=== PATIENT | male | born 1980 | race Caucasian/White ===

== ENCOUNTER 2019-08-03 19:47 | Emergency (ER) | payer OTHER, SELFPAY ==
[2019-08-03 20:11] VITALS: BP 126/60; PULSE 106; RESP 23; TEMP 39.4; O2SAT 97; BMI 27.1
--- NOTE | 2019-08-03 20:23 | DI.RAD.S_ITS ---
PROCEDURE: XR CHEST 1V INDICATIONS: suspected sepsis TECHNIQUE: One view of the chest was acquired. COMPARISON: None. FINDINGS: Surgical changes and devices: None. Lungs and pleura: Lungs are clear. No pleural effusions or pneumothorax. Mediastinum: Mediastinal contours appear normal. Heart size is normal. Bones and chest wall: No suspicious bony lesions. Overlying soft tissues appear unremarkable. IMPRESSION: No acute cardiopulmonary abnormalities or focal airspace disease. Dictated by: Stanton Granados M.D. on 08/03/2019 at 21:49 Approved by: Stanton Granados M.D. on 08/03/2019 at 21:49
[2019-08-03] MEDS: ACETAMINOPHEN 325 MG TABLET 975 MG PO (20:28)
[2019-08-03] MEDS: SODIUM CHLORIDE 0.9% 1,000 ML 1000 ML IV ×2 (20:42→21:45)
[2019-08-03 21:08] LABS: INR 1.2 (0.9-1.3); Prothrombin Time 13.4 SECONDS (10.1-12.7)
[2019-08-03 21:11] LABS: PTT Partial Thromboplastin Tim 33 SECONDS (26.4-36.2)
[2019-08-03 21:13] LABS: Add Manual Diff / Slide Review NO; Basophils Absolute Auto 0 /uL (0-100); Basophils Percent Auto 0.2 % (0-2); Eosinophils Absolute Auto 100 /uL (0-450); Eosinophils Percent Auto 1.3 % (2-4); Hematocrit 43.4 % (41-53); Hemoglobin 14.8 g/dL (13.5-17.5); Lactate (Lactic Acid) 0.9 mmol/L (0.7-2.1); Lymphocytes Absolute Auto 500 /uL (1100-4500); Lymphocytes Percent Auto 9.4 % (25-40); Mean Corpuscular HGB Conc 34.1 % (30-36); Mean Corpuscular Hemoglobin 28.6 PG (26-34); Monocytes Absolute Auto 1100 /uL (0-900); Monocytes Percent Auto 19.6 % (3-14); Neutrophils Absolute Auto 3700 /uL (1500-7000); Neutrophils Percent Auto 69.5 % (50-75); Platelet Count 162 X10^3/uL (150-400); Red Blood Cell Count 5.17 X10^6/uL (4.5-5.9); Red Cell Distribution Width 12.7 % (11.6-14.8); White Blood Cell Count 5.4 X10^3/uL (4.5-11.0)
[2019-08-03 21:14] LABS: Alanine Aminotransferase 21 IU/L (<50); Albumin 4.5 g/dL (3.5-5.0); Albumin Globulin Ratio 1.2 (1.0-2.8); Alkaline Phosphatase 82 U/L (38-126); Aspartate Aminotransferase 29 IU/L (17-59); BUN Creatinine Ratio 13.8 (6-22); Bilirubin Total 0.4 mg/dL (0.2-1.3); Blood Urea Nitrogen 15 mg/dL (9-20); Calcium 9.2 mg/dL (8.4-10.2); Carbon Dioxide 24 mmol/L (22-32); Chloride 105 mmol/L (98-107); Estimated Glomerular Filt Rate > 60.0 mL/min (>60); Globulin 3.7 g/dL (1.7-4.1); Glucose 123 mg/dL (70-100); HEMOLYSIS < 15 (0-50); Lipase 96 U/L (23-300); Potassium 3.7 mmol/L (3.4-5.1); Sodium 137 mmol/L (137-145); Total Protein 8.2 g/dL (6.3-8.2)
--- NOTE | 2019-08-03 21:17 | ED_ITS ---
HPI - Sepsis General Chief Complaint: Upper Respiratory Symptoms Mode of arrival: Ambulatory Source: patient Limitations: no limitations Evaluation Sepsis Screen: Possible Sepsis Risk Sepsis Infection Criteria Present: Suspected New Infection Narrative: This is a 38-year-old who comes in with complaint of about 24 hours of fever, cough that is been productive with brownish discoloration, shortness of breath and chest discomfort. Patient had body aches all over. He states that temperatures have been up to [id number] F. He has been taking Tylenol and ibuprofen intermittently. Patient states that he has a mild headache. No neck pain. He has generalized body aches. He has not had any vomiting has had maybe some mild nausea. He has been slightly constipated but did passing gas. He has not had any frequency, dysuria, urgency. He denies any rashes or skin changes. Son has had a cough at home. Patient states otherwise healthy, he is not on any regular medications, he denies prior surgeries. He denies any allergies to medications. Patient states no international travel. He has no other sick contacts besides his son. He does have coworkers who have been in [place] recently. Review of Systems Review of Systems ROS Unobtainable: All systems reviewed & are unremarkable except as noted in HPI and below Patient History Social History Smoking Status: Current every day smoker Smoking Status: Current every day smoker alcohol intake frequency: a few times a month Substance Use Type: does not use Exam Narrative Exam Narrative: GEN: well nourished, well appearing male, alert and oriented x 3, patient appears to be in mild distress. Patient is warm to the touch. He is not diaphoretic. HEENT: Atraumatic, pupils are equal round reactive to light, extraocular movements are intact, nares are clear, TMs are clear with no fluid, there is no conjunctival pallor. Throat is clear without any exudates, erythema, tonsillar enlargement or uvular deviation, no cervical lymphadenopathy. Negative Kernig's and Brudzinski. HEART: Regular rate and rhythm without murmur, clicks, rubs. Pulses are equal in upper and lower extremities LUNGS:Lungs clear to auscultation, no wheezes, rales, crackles, chest moves symmetrically, no tachypnea accessory muscle use. ABD:bowel sounds normal, soft, non-tender, no guarding, rebound, rigidity, no masses noted, no hepatosplenomegaly :No CVA tenderness MSCL: Non-tender, no muscle atrophy, muscles strength 5/5 upper and lower extremities, full range of motion, normal gait NEURO:CN 2-12 intact, sensation normal SKIN: Rash, erythema or other skin changes. No petechiae. Initial Vital Signs Initial Vital Signs: Vital Signs Temperature 103 F H 08/03/19 20:11 Pulse Rate 106 H 08/03/19 20:11 Respiratory Rate 23 08/03/19 20:11 Blood Pressure 126/60 08/03/19 20:11 Pulse Oximetry 97 08/03/19 20:11 Scores qSOFA Altered Mental Status (GCS <15): No Respiratory rate greater than/equal to 22: No Systolic blood pressure less than or equal to 100: No qSOFA Total: 0 0-1 Not High Risk 1-3 High risk Course Orders Ordered: ED Orders 08/03/19 20:23 XR chest 1V Stat EKG-12 Lead Stat RT Consult Eval and Treat Now 08/03/19 20:39 Complete Blood Count AUTO DIFF Stat Comprehensive Metabolic Panel Stat Lactate (Lactic Acid) Stat Lipase Stat Partial Thromboplastin Time Stat Procalcitonin Stat Prothrombin Time INR Stat Respiratory Panel (Film Array) Stat 08/03/19 20:46 Blood Culture Stat Discontinued Medications Acetaminophen (Tylenol) 975 mg PO NOW ONE Stop: 08/03/19 20:24 Last Admin: 08/03/19 20:28 Dose: 975 mg Documented by: SARAH Sodium Chloride (Normal Saline 0.9%) 1,000 mls @ 1,000 mls/hr IV BOLUS ONE Stop: 08/03/19 21:22 Last Infusion: 08/03/19 21:44 Dose: 0 mls/hr Documented by: Admin: 08/03/19 20:42 Dose: 1,000 mls/hr Documented by: KARINE Sodium Chloride (Normal Saline 0.9%) 1,000 mls @ 1,000 mls/hr IV BOLUS ONE Stop: 08/03/19 22:25 Last Infusion: 08/03/19 22:40 Dose: 0 mls/hr Documented by: Admin: 08/03/19 21:45 Dose: 1,000 mls/hr Documented by: KARINE Vital Signs Vital signs: Vital Signs - 8 hr 08/03/19 20:11 08/03/19 22:53 Temperature 103 F H 98.6 F Pulse Rate 106 H 74 Respiratory Rate 23 18 Blood Pressure 126/60 Blood Pressure [Left Arm] 108/51 L Pulse Oximetry 97 94 MDM - Sepsis Lab Data Attestation: I reviewed the patient's lab results. Result diagrams: 08/03/19 20:39 08/03/19 20:39 Labs: Lab Results 08/03/19 08/03/19 08/03/19 Range/Units 20:39 20:39 20:39 WBC 5.4 (4.5-11.0) X10^3/uL RBC 5.17 (4.5-5.9) X10^6/uL Hgb 14.8 (13.5-17.5) g/dL Hct 43.4 (41-53) % MCV 84.0 (80-100) fL MCH 28.6 (26-34) PG MCHC 34.1 (30-36) % RDW 12.7 (11.6-14.8) % Plt Count 162 (150-400) X10^3/uL Neut % (Auto) 69.5 (50-75) % Lymph % (Auto) 9.4 L (25-40) % [place] % (Auto) 19.6 H (3-14) % Eos % (Auto) 1.3 L (2-4) % Baso % (Auto) 0.2 (0-2) % Neut # (Auto) 3700 (8434-0568) /uL Lymph # (Auto) 500 L (5226-6402) /uL [place] # (Auto) 1100 H (0-900) /uL Eos # (Auto) 100 (0-450) /uL Baso # (Auto) 0 (0-100) /uL PT 13.4 H (10.1-12.7) SECONDS INR 1.2 (0.9-1.3) APTT 33 (26.4-36.2) SECONDS Sodium (137-145) mmol/L Potassium (3.4-5.1) mmol/L Chloride (98-107) mmol/L Carbon Dioxide (22-32) mmol/L BUN (9-20) mg/dL Creatinine (0.66-1.25) mg/dL Estimated GFR (>60) mL/min BUN/Creatinine Ratio (6-22) Glucose (70-100) mg/dL Lactate (0.7-2.1) mmol/L Calcium (8.4-10.2) mg/dL Total Bilirubin (0.2-1.3) mg/dL AST (17-59) IU/L ALT (<50) IU/L Alkaline Phosphatase (38-126) U/L Total Protein (6.3-8.2) g/dL Albumin (3.5-5.0) g/dL Globulin (1.7-4.1) g/dL Albumin/Globulin Ratio (1.0-2.8) Lipase (23-300) U/L Procalcitonin < 0.05 (<0.5) ng/mL Chlamy pneumoniae PCR (Not Detect) Adenovirus (PCR) (Not Detect) B.parapertussis DNA PCR (Not Detect) Coronavirus OC43 (PCR) (Not Detect) Coronavirus HKU1 (PCR) (Not Detect) Coronavirus 229E (PCR) (Not Detect) Coronavirus NL63 (PCR) (Not Detect) Human Metapneumovir PCR (Not Detect) Influenza Type A (PCR) (Not Detect) Influenza Type B (PCR) (Not Detect) M. pneumoniae (PCR) (Not Detect) Parainfluenza 1 (PCR) (Not Detect) Parainfluenza 2 (PCR) (Not Detect) Parainfluenza 3 (PCR) (Not Detect) Parainfluenza 4 (PCR) (Not Detect) RSV (PCR) (Not Detect) Entero/Rhino (PCR) (Not Detect) 08/03/19 08/03/19 08/03/19 Range/Units 20:39 20:39 20:39 WBC (4.5-11.0) X10^3/uL RBC (4.5-5.9) X10^6/uL Hgb (13.5-17.5) g/dL Hct (41-53) % MCV (80-100) fL MCH (26-34) PG MCHC (30-36) % RDW (11.6-14.8) % Plt Count (150-400) X10^3/uL Neut % (Auto) (50-75) % Lymph % (Auto) (25-40) % [place] % (Auto) (3-14) % Eos % (Auto) (2-4) % Baso % (Auto) (0-2) % Neut # (Auto) (1348-0277) /uL Lymph # (Auto) (9974-4200) /uL [place] # (Auto) (0-900) /uL Eos # (Auto) (0-450) /uL Baso # (Auto) (0-100) /uL PT (10.1-12.7) SECONDS INR (0.9-1.3) APTT (26.4-36.2) SECONDS Sodium 137 (137-145) mmol/L Potassium 3.7 (3.4-5.1) mmol/L Chloride 105 (98-107) mmol/L Carbon Dioxide 24 (22-32) mmol/L BUN 15 (9-20) mg/dL Creatinine 1.09 (0.66-1.25) mg/dL Estimated GFR > 60.0 (>60) mL/min BUN/Creatinine Ratio 13.8 (6-22) Glucose 123 H (70-100) mg/dL Lactate 0.9 (0.7-2.1) mmol/L Calcium 9.2 (8.4-10.2) mg/dL Total Bilirubin 0.4 (0.2-1.3) mg/dL AST 29 (17-59) IU/L ALT 21 (<50) IU/L Alkaline Phosphatase 82 (38-126) U/L Total Protein 8.2 (6.3-8.2) g/dL Albumin 4.5 (3.5-5.0) g/dL Globulin 3.7 (1.7-4.1) g/dL Albumin/Globulin Ratio 1.2 (1.0-2.8) Lipase 96 (23-300) U/L Procalcitonin (<0.5) ng/mL Chlamy pneumoniae PCR Not detected (Not Detect) Adenovirus (PCR) Not detected (Not Detect) B.parapertussis DNA PCR Not detected (Not Detect) Coronavirus OC43 (PCR) Not detected (Not Detect) Coronavirus HKU1 (PCR) Not detected (Not Detect) Coronavirus 229E (PCR) Not detected (Not Detect) Coronavirus NL63 (PCR) Not detected (Not Detect) Human Metapneumovir PCR Not detected (Not Detect) Influenza Type A (PCR) Detected H (Not Detect) Influenza Type B (PCR) Not detected (Not Detect) M. pneumoniae (PCR) Not detected (Not Detect) Parainfluenza 1 (PCR) Not detected (Not Detect) Parainfluenza 2 (PCR) Not detected (Not Detect) Parainfluenza 3 (PCR) Not detected (Not Detect) Parainfluenza 4 (PCR) Not detected (Not Detect) RSV (PCR) Not detected (Not Detect) Entero/Rhino (PCR) Not detected (Not Detect) Imaging Data Chest x-ray: Radiologist's Impression: [address] [address] XRay Report Signed Patient: Taz Greene KMR#: [id number] : 1980Acct:[id number] Age/Sex: 38 / MDate of Service: 08/03/19 Loc: ED Accession Number: [id number] Procedure: XR chest 1V Ordering Provider: Diamond Tejada D.O. PROCEDURE: XR CHEST 1V INDICATIONS: suspected sepsis TECHNIQUE: One view of the chest was acquired. COMPARISON: None. FINDINGS: Surgical changes and devices: None. Lungs and pleura: Lungs are clear. No pleural effusions or pneumothorax. Mediastinum: Mediastinal contours appear normal. Heart size is normal. Bones and chest wall: No suspicious bony lesions. Overlying soft tissues appear unremarkable. IMPRESSION: No acute cardiopulmonary abnormalities or focal airspace disease. Dictated by: Stanton Granados M.D. on 08/03/2019 at 21:49 Approved by: Stanton Granados M.D. on 08/03/2019 at 21:49 [facility] Narrative Medical decision making narrative: Patient comes in with fevers, muscle aches and flu-like symptoms. His respiratory panel positive, chest x-ray is negative. His lab work shows no leukocytosis, slightly elevated monocytes. Glucose is 123 with otherwise normal renal function and electrolytes and procalcitonin is negative. Patient received Tylenol department his temperature is improved he has received fluids heart rate is also improved. He does not meet septic criteria at this point. Patient is within the range for Tamiflu and was offered risk versus benefits were discussed and patient is unsure if he would like to started. Given a prescription and advised to started within 48 hours of symptom onset. Patient was also advised to avoid work until he has been afebrile for 48 hours. Discharge Plan Departure Patient Disposition: Home Clinical Impression: Influenza A Discharge Date/Time: 08/03/19 23:48 Instructions: DI for Influenza -- Adult Activity Restrictions/Additional Instructions: Follow-up with your physician in the next week (7-10 days) if your symptoms are not improving. You may take Tamiflu twice daily x5 days. Start Tamiflu within 48 hours of symptom onset. Continue to alternate Tylenol and ibuprofen as needed for fevers. Return to the ER for worsening shortness of breath, lightheadedness or passing out, persistent vomiting, black or bloody stools, new rashes or skin changes, altered mental status, or other new or concerning symptoms. Prescriptions: New oseltamivir [Tamiflu] 75 mg capsule 75 mg PO BID 5 Days Qty: 10 RF: 0
[2019-08-03 22:01] LABS: Procalcitonin < 0.05 ng/mL (<0.5)
[2019-08-03 22:33] LABS: Adenovirus Not Detected (Not Detect); Bordetella pertussis Not Detected (Not Detect); Chlamydophila pneumoniae Not Detected (Not Detect); Coronavirus 229E Not Detected (Not Detect); Coronavirus HKU1 Not Detected (Not Detect); Coronavirus NL 63 Not Detected (Not Detect); Coronavirus OC43 Not Detected (Not Detect); Human Metapneumovirus Not Detected (Not Detect); Human Rhinovirus/Enterovirus Not Detected (Not Detect); Influenza A Detected (Not Detect); Influenza B Not Detected (Not Detect); Mycoplasma pneumoniae Not Detected (Not Detect); Parainfluenza Virus 1 Not Detected (Not Detect); Parainfluenza Virus 2 Not Detected (Not Detect); Parainfluenza Virus 3 Not Detected (Not Detect); Parainfluenza Virus 4 Not Detected (Not Detect); Respiratory Syncytial Virus Not Detected (Not Detect)
[2019-08-03 22:53] VITALS: BP 108/51; PULSE 74; RESP 18; TEMP 37; O2SAT 94
== END 2019-08-03 23:48 | disposition home or self-care (01) ==
PROVIDERS: Emergency Provider Emergency Medicine
DX: J10.1 Influenza due to other identified influenza virus with other respiratory manifestations (principal)
CPT/HCPCS: 36415; 71045; 80053; 83605; 83690; 84145; 85025; 85610; 85730; 87040; 87633; 93005; 96360; 96361; 99284

== ENCOUNTER 2019-08-13 06:49 | Emergency (ER) | payer OTHER, SELFPAY ==
[2019-08-13 06:50] VITALS: BP 124/71; PULSE 84; RESP 18; TEMP 37.4; O2SAT 96; BMI 27.1
--- NOTE | 2019-08-13 07:21 | ED.FEVER ---
HPI - Fever General Chief Complaint: Fever Stated Complaint: difficulty breathing,fever,o2 is 87-89/returning Time Seen by Provider: 08/13/19 07:00 Source: patient Mode of arrival: Family Vehicle Limitations: no limitations History of Present Illness HPI Narrative: 38M nonsmoker presents with his and the chief complaint of cough, SOB, chills and generalized weakness over the past week or so. Patient was originally seen 10 days ago and diagnosed with influenza a. Though given a prescription for Tamiflu he did not take it. His fever is largely improved but overall he just feels unwell in the aftermath. He has had nausea but denies any vomiting. He denies any full on diarrhea but has had some soft stools. He denies any recent travel or exposure to persons known to be under suspicion for COVID-19. He has a home pulse ox and noted his saturations to be in the 70s or 80s, however on arrival here he was found to be 96% on room air without any significant work of breathing. MD complaint: fever and weakness Onset (ago): day(s) Temperature Source: subjective Context: sick contacts Associated symptoms: chills Relieving factors: nothing Exacerbating factors: nothing Treatments prior to arrival fever: none Related Data Previous Rx's Medication Instructions Recorded oseltamivir [Tamiflu] 75 mg PO BID 5 Days #10 cap 08/03/19 azithromycin 250 mg PO DAILY 5 Days tab 08/13/19 azithromycin See Rx Instructions .ROUTE 08/13/19 .COMPLEX #3 tab Allergies Allergy/AdvReac Type Severity Reaction Status Date / Time No Known Drug Allergies Allergy Verified 08/03/19 20:17 Review of Systems Constitutional Constitutional: Reports chills, Denies fatigue, Reports fever(s), Denies frequent falls, Denies lethargy and Reports weakness Eyes Eyes: Denies change in vision, Denies eye discharge, Denies irritation and Denies loss of vision ENT Ears, Nose, Mouth, and Throat: Denies change in voice, Denies dizziness, Denies neck pain, Denies sore throat and Denies throat swelling Cardiovascular Cardiovascular: Denies chest pain, Denies irregular heart rhythm, Denies lightheadedness, Denies palpitations, Reports dyspnea, Denies dyspnea on exertion and Denies orthopnea Respiratory Respiratory: Reports cough, Reports dyspnea, Denies dyspnea on exertion and Denies wheezing Gastrointestinal Gastrointestinal: Denies abdominal pain, Denies change in bowel habits, Denies diarrhea, Denies nausea and Denies vomiting Genitourinary Genitourinary: Denies hematuria, Denies flank pain, Denies urinary incontinence and Denies urinary urgency Musculoskeletal Musculoskeletal: Denies back pain, Denies muscle weakness, Denies neck pain, Denies numbness and Denies tingling Integumentary/Breasts Skin/Breast: Denies pruritus, Denies erythema, Denies rash and Denies wounds Neurologic Neurologic: Denies behavioral changes, Denies confusion, Denies dizziness, Denies frequent falls, Denies loss of vision, Denies numbness, Denies tingling and Reports weakness Psychiatric Psychiatric: Denies anxiety, Denies behavioral changes, Denies confusion, Denies depression, Denies homicidal ideation and Denies suicidal ideation Endocrine Endocrine: Denies fatigue, Denies flushing and Denies palpitations Hematologic/Lymphatic Hematologic/Lymphatic: Denies easy bruising Allergic/Immunologic Allergic/Immunologic: Denies urticaria, Denies throat swelling and Denies wheezing Patient History Social History Smoking Status: Current every day smoker Smoking Status: Current every day smoker alcohol intake frequency: a few times a month Substance Use Type: does not use Exam Narrative Exam Narrative: GENERAL: [38] year old patient appears stated age. Well-nourished, well-developed patient, in mild distress. HEAD: Atraumatic. Normocephalic. EYES: Pupils equal round and reactive. Extraocular motions intact. No scleral icterus. No injection or drainage. ENT: Nose without bleeding, purulent drainage. Throat without erythema, tonsillar hypertrophy or exudate. Airway patent. NECK: Trachea midline. Non tender CARDIOVASCULAR: Regular rate and rhythm without murmurs, gallops, or rubs. RESPIRATORY: Clear to auscultation. Breath sounds equal bilaterally. No wheezes, rales, or rhonchi. GASTROINTESTINAL: Abdomen soft, non-tender, nondistended. EXTREMITIES: No edema or joint tenderness. BACK: Nontender without deformity or crepitance. No flank tenderness. NEURO: AOx3. SKIN: No rash or erythema of visible areas Initial Vital Signs Initial Vital Signs: Vital Signs Temperature 99.3 F 08/13/19 06:50 Pulse Rate 84 08/13/19 06:50 Respiratory Rate 18 08/13/19 06:50 Blood Pressure 124/71 08/13/19 06:50 Pulse Oximetry 96 08/13/19 06:50 Course Orders Ordered: ED Orders 08/13/19 07:27 XR chest 2V Stat 08/13/19 08:10 C-Reactive Protein Quant Stat Complete Blood Count AUTO DIFF Stat Comprehensive Metabolic Panel Stat Ferritin Stat Procalcitonin Stat Vital Signs Vital signs: Vital Signs - 8 hr 08/13/19 06:50 08/13/19 09:20 Temperature 99.3 F Pulse Rate 84 69 Respiratory Rate 18 Blood Pressure 124/71 121/56 L Pulse Oximetry 96 94 MDM - Fever Lab Data Result diagrams: 08/13/19 08:10 08/13/19 08:10 Labs: Lab Results 08/13/19 08/13/19 08/13/19 Range/Units 08:10 08:10 08:10 WBC 15.5 H (4.5-11.0) X10^3/uL RBC 4.97 (4.5-5.9) X10^6/uL Hgb 13.9 (13.5-17.5) g/dL Hct 41.1 (41-53) % MCV 82.6 (80-100) fL MCH 28.0 (26-34) PG MCHC 33.8 (30-36) % RDW 12.3 (11.6-14.8) % Plt Count 231 (150-400) X10^3/uL Neut % (Auto) 78.3 H (50-75) % Lymph % (Auto) 8.9 L (25-40) % [place] % (Auto) 12.1 (3-14) % Eos % (Auto) 0.4 L (2-4) % Baso % (Auto) 0.3 (0-2) % Neut # (Auto) 06442 H (2758-2503) /uL Lymph # (Auto) 1400 (4497-6301) /uL [place] # (Auto) 1900 H (0-900) /uL Eos # (Auto) 100 (0-450) /uL Baso # (Auto) 100 (0-100) /uL Sodium 139 (137-145) mmol/L Potassium 3.9 (3.4-5.1) mmol/L Chloride 107 (98-107) mmol/L Carbon Dioxide 25 (22-32) mmol/L BUN 12 (9-20) mg/dL Creatinine 0.90 (0.66-1.25) mg/dL Estimated GFR > 60.0 (>60) mL/min BUN/Creatinine Ratio 13.3 (6-22) Glucose 120 H (70-100) mg/dL Calcium 9.3 (8.4-10.2) mg/dL Total Bilirubin 0.5 (0.2-1.3) mg/dL Ferritin 229 (18-464) ng/mL AST 24 (17-59) IU/L ALT 21 (<50) IU/L Alkaline Phosphatase 74 (38-126) U/L C-Reactive Protein 3.2 H (<1.0) mg/dL Total Protein 8.2 (6.3-8.2) g/dL Albumin 4.2 (3.5-5.0) g/dL Globulin 4.0 (1.7-4.1) g/dL Albumin/Globulin Ratio 1.1 (1.0-2.8) Procalcitonin 0.08 (<0.5) ng/mL Imaging Data Chest x-ray: Radiologist's Impression: Taz Greene 38 M 1980 [place] [address] XRay Report Signed Patient: Taz Greene KMR#: [id number] : 1980Acct:[id number] Age/Sex: 38 / MDate of Service: 08/13/19 Loc: ED Accession Number: [id number] Procedure: XR chest 2V Ordering Provider: Cleveland Prieto D.O. PROCEDURE: XR CHEST 2V INDICATIONS: cough, fever TECHNIQUE: 2 views of the chest were acquired. COMPARISON: Located Within [facility], CR, XR CHEST 2 VIEWS, 08/06/2015, 19:00. [facility], CR, XR CHEST 1V, 08/03/2019, 20:41. FINDINGS: Surgical changes and devices: None. Lungs and pleura: Lungs are clear. No pleural effusions or pneumothorax. Mediastinum: Mediastinal contours are normal. Heart size is normal. Bones and chest wall: No suspicious bony abnormalities. Soft tissues appear unremarkable. IMPRESSION: No acute cardiopulmonary abnormality. Dictated by: Bright Dhaliwal M.D. on 08/13/2019 at 7:58 Approved by: Bright Dhaliwal M.D. on 08/13/2019 at 7:59 Discharge Plan Departure Patient Disposition: Home Clinical Impression: Influenza A, Atypical pneumonia Discharge Date/Time: 08/13/19 09:21 Instructions: DI for Influenza -- Adult, DI for Fever (Symptom) -- Adult Activity Restrictions/Additional Instructions: *You have been diagnosed with [influenza a. Your chest x-ray was clear your symptoms suggest that we test you for belcher virus.] *What to do: *Take medications as directed: Tylenol or Motrin *Return to ER if you should have any new, worsening or concerning symptoms STAY HOME except to receive medical care. Separate yourself from others. Call ahead before visiting your doctor. Wear a facemask. Cough into your elbow. Wash your hands frequently. Do not share household items. We will call you when results of test come back (usually 3-4 days). Home isolation at least until results are back. Please consult the two handouts from the CDC we've given you. Prescriptions: New azithromycin 250 mg tablet 250 mg PO DAILY 5 Days RF: 0 azithromycin 500 mg tablet See Rx Instructions .ROUTE .COMPLEX Qty: 3 RF: 0 No Action oseltamivir [Tamiflu] 75 mg capsule 75 mg PO BID 5 Days Qty: 10 RF: 0 Referrals: [facility] [Outside]
--- NOTE | 2019-08-13 07:27 | DI.RAD.S_ITS ---
PROCEDURE: XR CHEST 2V INDICATIONS: cough, fever TECHNIQUE: 2 views of the chest were acquired. COMPARISON: [facility], CR, XR CHEST 2 VIEWS, 08/06/2015, 19:00. [facility], CR, XR CHEST 1V, 08/03/2019, 20:41. FINDINGS: Surgical changes and devices: None. Lungs and pleura: Lungs are clear. No pleural effusions or pneumothorax. Mediastinum: Mediastinal contours are normal. Heart size is normal. Bones and chest wall: No suspicious bony abnormalities. Soft tissues appear unremarkable. IMPRESSION: No acute cardiopulmonary abnormality. Dictated by: Bright Dhaliwal M.D. on 08/13/2019 at 7:58 Approved by: Bright Dhaliwla M.D. on 08/13/2019 at 7:59
[2019-08-13 08:18] LABS: Add Manual Diff / Slide Review NO; Basophils Absolute Auto 100 /uL (0-100); Basophils Percent Auto 0.3 % (0-2); Eosinophils Absolute Auto 100 /uL (0-450); Eosinophils Percent Auto 0.4 % (2-4); Hematocrit 41.1 % (41-53); Hemoglobin 13.9 g/dL (13.5-17.5); Lymphocytes Absolute Auto 1400 /uL (1100-4500); Lymphocytes Percent Auto 8.9 % (25-40); Mean Corpuscular HGB Conc 33.8 % (30-36); Mean Corpuscular Volume 82.6 fL (80-100); Monocytes Absolute Auto 1900 /uL (0-900); Monocytes Percent Auto 12.1 % (3-14); Neutrophils Absolute Auto 12100 /uL (1500-7000); Neutrophils Percent Auto 78.3 % (50-75); Platelet Count 231 X10^3/uL (150-400); Red Blood Cell Count 4.97 X10^6/uL (4.5-5.9); Red Cell Distribution Width 12.3 % (11.6-14.8); White Blood Cell Count 15.5 X10^3/uL (4.5-11.0)
[2019-08-13 08:33] LABS: Alanine Aminotransferase 21 IU/L (<50); Albumin 4.2 g/dL (3.5-5.0); Albumin Globulin Ratio 1.1 (1.0-2.8); Alkaline Phosphatase 74 U/L (38-126); Aspartate Aminotransferase 24 IU/L (17-59); BUN Creatinine Ratio 13.3 (6-22); Bilirubin Total 0.5 mg/dL (0.2-1.3); Blood Urea Nitrogen 12 mg/dL (9-20); C-Reactive Protein Quant 3.2 mg/dL (<1.0); Calcium 9.3 mg/dL (8.4-10.2); Carbon Dioxide 25 mmol/L (22-32); Chloride 107 mmol/L (98-107); Estimated Glomerular Filt Rate > 60.0 mL/min (>60); Glucose 120 mg/dL (70-100); HEMOLYSIS < 15 (0-50); Potassium 3.9 mmol/L (3.4-5.1); Sodium 139 mmol/L (137-145); Total Protein 8.2 g/dL (6.3-8.2)
[2019-08-13 08:40] LABS: Procalcitonin 0.08 ng/mL (<0.5)
[2019-08-13 09:06] LABS: Ferritin 229 ng/mL (18-464)
[2019-08-13 09:20] VITALS: BP 121/56; PULSE 69; O2SAT 94
[2019-08-15 20:36] LABS: COVID19 Sendout Not Detected (Not Detected)
== END 2019-08-13 09:21 | disposition home or self-care (01) ==
PROVIDERS: Emergency Provider Emergency Medicine
DX: J09.X1 Influenza due to identified novel influenza A virus with pneumonia (principal)
CPT/HCPCS: 36415; 71046; 80053; 82728; 84145; 85025; 86140; 99283; 99284

== ENCOUNTER 2019-12-14 11:34 | Emergency (ER) | payer OTHER, SELFPAY ==
[2019-12-14 11:35] VITALS: BP 129/81; PULSE 72; RESP 16; TEMP 36.6; O2SAT 99; BMI 27.1
--- NOTE | 2019-12-14 12:03 | ED.EXTPRO ---
HPI - Extremity Problem General Stated complaint: Rt big toe swelling Time Seen by Provider: 12/14/19 11:46 Source: patient Mode of arrival: Ambulatory Limitations: no limitations History of Present Illness HPI Narrative: The patient underwent excision of a right great toe nail several days ago. He has had a previous toe nail removal. This is his 2nd procedure, the entire nail was removed this time. Silver nitrate was placed in the nail bed after removal. He is also using topical bacitracin. He now has redness to the toe, with significant pain. There is no red streaks coming from the toe. He has no fever. Related Data Previous Rx's Medication Instructions Recorded azithromycin See Rx Instructions .ROUTE 08/13/19 .COMPLEX #3 tab sulfamethoxazole-trimethoprim 1 tab PO BID 7 Days #14 tab 12/14/19 Allergies Allergy/AdvReac Type Severity Reaction Status Date / Time No Known Drug Allergies Allergy Verified 08/03/19 20:17 Review of Systems Constitutional Constitutional: Reports as per HPI and Denies fever(s) Musculoskeletal Comments: Right great toe pain. Right great toe erythema. Integumentary/Breasts Comments: Injury to the right great toe from recent nail removal. Patient History Social History Smoking Status: Current every day smoker Smoking Status: Current every day smoker alcohol intake frequency: a few times a month Substance Use Type: does not use Exam Const General: cooperative, healthy appearing and well developed Nutritional Appearance: well nourished Skin Other: No rashes. Erythema to the right great toe. Neuro General: patient alert, patient oriented x3, gait normal and no focal motor deficits Speech: speech normal Extrem Other: The right great toe nail has been removed. There is black residue in the nail bed from silver nitrate application. There is Prelone discharge from the medial side with a nail was removed. There is no fluctuance. About half of his toe is erythematous and warm to touch. There is no lymphangitis. Course Course Course Narrative: The patient was started on Septra DS today. He will be discharged with instruction to soak the toe in Epsom salts/warm water several times daily until improved, and to take the Septra DS as prescribed. Orders Ordered: ED Orders 12/14/19 11:59 Wound Culture and Gram Stain Stat Discontinued Medications Trimethoprim/Sulfamethoxazole (Bactrim Ds) 2 tab PO NOW ONE Stop: 12/14/19 12:00 Discharge Plan Departure Patient Disposition: Home Clinical Impression: Cellulitis of great toe of right foot Instructions: Cellulitis Activity Restrictions/Additional Instructions: Septra DS 2 times daily for 7 days. Motrin every 6 hours as needed for pain. Soak your right foot in hot water with Epsom salts 3-4 times daily until improving. Recheck with her doctor in about 3 days. Return to the ER if he develops significant increased redness from the great toe. Prescriptions: New sulfamethoxazole-trimethoprim 800-160 mg tablet 1 tab PO BID 7 Days Qty: 14 RF: 0 No Action azithromycin 500 mg tablet See Rx Instructions .ROUTE .COMPLEX Qty: 3 RF: 0
[2019-12-14] MEDS: TRIMETH/SULFA 160/800 (DS) TABLET 2 TAB PO (12:27)
--- NOTE | 2019-12-14 13:43 | PC.NURSE ---
at 1200 patient seen by MD and discharged shortly after arrival. Oral antibiotics given, toe wrapped with guaze at patient's request to keep him form bumping it. Patlient discharged with family
== END 2019-12-14 12:40 | disposition home or self-care (01) ==
PROVIDERS: Emergency Provider Emergency Medicine
DX: L03.031 Cellulitis of right toe (principal)
CPT/HCPCS: 87070; 87075; 87205; 99283

== ENCOUNTER 2024-09-08 15:12 | Emergency (ER) | payer OTHER, SELFPAY ==
[2024-09-08] VITALS (7 sets, daily range): BP systolic 106–147; BP diastolic 53–70; PULSE 42–61; RESP 18–24; TEMP 36.6; O2SAT 99–100; BMI 27.1
--- NOTE | 2024-09-08 15:24 | EKG_ITS ---
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
--- NOTE | 2024-09-08 15:43 | DI.RAD.S_ITS ---
PROCEDURE: XR CHEST 1V INDICATIONS: chest pain TECHNIQUE: One view of the chest was acquired. COMPARISON: [facility], CR, XR CHEST 2V, 08/13/2019, 6:31. FINDINGS: Surgical changes and devices: None. Lungs and pleura: Lungs are clear. No pleural effusions or pneumothorax. Mediastinum: Mediastinal contours appear normal. Heart size is normal. Bones and chest wall: No suspicious bony lesions. Overlying soft tissues appear unremarkable. IMPRESSION: No acute cardiopulmonary abnormality is seen. Dictated by: Duane Oneal M.D. on 09/08/2024 at 16:22 Approved by: Duane Oneal M.D. on 09/08/2024 at 16:22
--- NOTE | 2024-09-08 15:45 | ED.SYNCOPE ---
HPI - Syncope General Chief Complaint: Syncope Stated Complaint: Sent by [facility], passed out, abnormal EKG Time Seen by Provider: 09/08/24 15:45 Source: patient and family Mode of arrival: Ambulatory Limitations: no limitations History of Present Illness HPI narrative: 44-year-old male without any significant past medical history comes into the ED for evaluation of chest pain syncope. According to the patient on Friday09/03/2024 patient started having some right-sided rib pain, states that he has been training for his 50 K and thought that he might have just ?pulled something states that the following day he was able to run it, states that he ran for approximately 9 hours, states that he was feeling fine, but went into his primary care doctor to look at a blister on his foot, he states that while he was there he had a witnessed syncopal episode lasting no more than 30 seconds no seizure-like activity. Was sent here to the emergency department for further evaluation treatment. At time of evaluation patient without any symptoms, no headache lightheadedness nausea vomiting abdominal pain or any other GI/ symptoms time. Does state that he is still having some mild right-sided chest pain. Related Data Previous Rx's Medication Instructions Recorded azithromycin 500 mg tablet See Rx Instructions PO .COMPLEX #3 08/13/19 tabs Allergies Allergy/AdvReac Type Severity Reaction Status Date / Time No Known Drug Allergies Allergy Verified 08/03/19 20:17 Review of Systems Review of Systems Narrative: General: Denies fever, chills, weight loss HEENT: Denies headache, eye drainage, eye irritation, head trauma, sore throat, voice change Cardiovascular: Denies any chest pain, palpitations, tachycardia Respiratory: Denies any shortness of breath, cough, wheeze, stridor GI/: Denies any abdominal pain, nausea, vomiting, diarrhea, bright red blood per rectum, melanotic stools, urinary frequency, urinary retention, dysuria, hematuria MSK: Denies any joint pain, muscle pains, swelling Skin: Denies any rashes, lesions, discoloration Neuro: Positive syncope, Denies any headache, lightheadedness, dizziness,weakness Psych: Denies SI/HI Patient History Smoking Status: Never smoker alcohol intake frequency: a few times a month Exam Narrative Exam Narrative: General: Cooperative, well-developed, not in acute distress HEENT: Normocephalic, atraumatic, PERRLA, normal sclera, eyelids normal Neck: Active full range of motion, atraumatic Chest: Normal to inspection, negative crepitus, no overlying erythema ecchymosis Respiratory: Reproducible chest pain upon palpation of the right side lateral chest, no overlying erythema ecchymosis gross deformity, Normal respiratory effort, not in acute respiratory distress, clear to auscultation bilaterally negative cough, wheeze, tachypnea, rhonchi, rales Cardiology: Regular rate rhythm negative gallop, murmur, rubs GI/: No tenderness to palpation, soft, non rigid, normal to inspection, exam deferred MSK: Full active range of motion in all 4 extremities, atraumatic, no tenderness to palpation of any bony prominences Skin: No rashes or lesions noted Neuro: Alert awake oriented x3, moves all 4 extremities spontaneously, cranial nerves intact, able to answer all questions appropriately follows commands appropriately Psych: Cooperative, negative suicidal or homicidal ideations Initial Vital Signs Initial Vital Signs: Vital Signs Temperature 97.9 F 09/08/24 15:15 Pulse Rate 61 09/08/24 15:15 Respiratory Rate 18 09/08/24 15:15 Blood Pressure 147/70 H 09/08/24 15:15 Pulse Oximetry 100 09/08/24 15:15 Oxygen Delivery Method Room Air 09/08/24 15:15 Course Orders Ordered: ED Orders 09/08/24 15:18 EKG-12 Lead Stat 09/08/24 15:43 XR chest 1V Stat Complete Blood Count AUTO DIFF Stat Comprehensive Metabolic Panel Stat Lipase Stat Magnesium Stat NT-proBNP (BNP-Adult 18+) Stat PTT Partial Thromboplastin Thom Stat Prothrombin Time INR Stat Troponin & CK Cardiac Panel Stat 09/08/24 15:46 CK [Creatine Kinase] Stat Sodium Chloride (Normal Saline 0.9%) 1,000 mls @ 1,000 mls/hr IV BOLUS ONE Stop: 09/08/24 16:54 Last Admin: 09/08/24 16:03 Dose: 1,000 mls/hr Discontinued Medications Aspirin (Aspirin 81 Mg Chew Tab) 324 mg PO NOW ONE Stop: 09/08/24 15:44 Last Admin: 09/08/24 15:57 Dose: Not Given Vital Signs Vital signs: Vital Signs - 8 hr 09/08/24 15:15 09/08/24 15:22 09/08/24 15:23 Temperature 97.9 F Pulse Rate 61 55 L Respiratory Rate 18 Blood Pressure 147/70 H Pulse Oximetry 100 100 100 Oxygen Delivery Method Room Air 09/08/24 15:23 09/08/24 15:30 09/08/24 15:30 Temperature Pulse Rate 55 L Respiratory Rate 23 Blood Pressure 147/70 H 128/61 Pulse Oximetry 100 Oxygen Delivery Method 09/08/24 15:39 09/08/24 15:39 Temperature Pulse Rate 42 L Respiratory Rate 20 Blood Pressure 106/53 L Pulse Oximetry 100 Oxygen Delivery Method MDM - Syncope Differential Diagnosis Differential diagnosis: Likely syncope due to orthostatic hypotension, vasovagal syncope, complete atrioventricular block, dehydration and other (ACS, pneumonia, electrolyte abnormality) Lab Data 09/08/24 15:40 09/08/24 15:40 Labs: Lab Results 09/08/24 09/08/24 Range/Units 15:40 15:40 WBC 6.2 (4.5-11.0) X10^3/uL RBC 4.76 (4.5-5.9) X10^6/uL Hgb 13.6 (13.5-17.5) g/dL Hct 40.4 L (41-53) % MCV 84.9 (80-100) fL MCH 28.5 (26-34) PG MCHC 33.6 (30-36) % RDW 13.2 (11.6-14.8) % Plt Count 158 (150-400) X10^3/uL Neut % (Auto) 60.9 (50-75) % Lymph % (Auto) 25.1 (25-40) % [place] % (Auto) 9.9 (3-14) % Eos % (Auto) 3.6 (2-4) % Baso % (Auto) 0.5 (0-2) % Neut # (Auto) 3800 (2918-6504) /uL Lymph # (Auto) 1600 (7893-7044) /uL [place] # (Auto) 600 (0-900) /uL Eos # (Auto) 200 (0-450) /uL Baso # (Auto) 0 (0-100) /uL PT 12.7 H (9.4-12.5) SECONDS INR 1.1 (0.9-1.3) APTT 34 (25.1-36.5) SECONDS Sodium 139 (137-145) mmol/L Potassium 4.1 (3.4-5.1) mmol/L Chloride 106 (98-107) mmol/L Carbon Dioxide 25 (22-32) mmol/L BUN 15 (9-20) mg/dL Creatinine 1.11 (0.66-1.25) mg/dL Estimated GFR > 60 (>60) mL/min BUN/Creatinine Ratio 13.5 (6-22) Glucose 113 H (70-100) mg/dL Calcium 8.9 (8.4-10.2) mg/dL Magnesium 2.2 (1.6-2.3) mg/dL Total Bilirubin 1.3 (0.2-1.3) mg/dL AST 62 H (17-59) IU/L ALT 46 (<50) IU/L Alkaline Phosphatase 56 (38-126) U/L Total Creatine Kinase 267 H 268 H (55-170) U/L Troponin I < 0.012 (0.01-0.034) ng/mL NT-Pro-B Natriuret Pep 44 (<125) pg/mL Total Protein 7.9 (6.3-8.2) g/dL Albumin 4.5 (3.5-5.0) g/dL Globulin 3.4 (1.7-4.1) g/dL Albumin/Globulin Ratio 1.3 (1.0-2.8) Lipase 92 (23-300) U/L Imaging Data Chest x-ray: Radiologist's Impression: [address] [address] XRay Report Signed Patient: Taz Greene MR#: [id number] : 1980 Acct:[id number] Age/Sex: 44 / M Date of Service: 09/08/24 Loc: ED Accession Number: [id number] Procedure: XR chest 1V Ordering Provider: Shay Patel D.O. PROCEDURE: XR CHEST 1V INDICATIONS: chest pain TECHNIQUE: One view of the chest was acquired. COMPARISON: [facility], CR, XR CHEST 2V, 08/13/2019, 6:31. FINDINGS: Surgical changes and devices: None. Lungs and pleura: Lungs are clear. No pleural effusions or pneumothorax. Mediastinum: Mediastinal contours appear normal. Heart size is normal. Bones and chest wall: No suspicious bony lesions. Overlying soft tissues appear unremarkable. IMPRESSION: No acute cardiopulmonary abnormality is seen. ECG Data Interpretation: EKG interpreted ED physician sinus bradycardia 54 beats per minute QTC 421, normal axis nonspecific ST changes no STEMI MDM Narrative Medical decision making narrative: 44-year-old male without any significant past medical history presents to the emergency department for witnessed syncopal episode. He states that he was at his primary care doctor's office when he had a witnessed syncopal episode lasting no more than 30 seconds no seizure-like activity. He states that few days ago he ran a 50 km race, states that he ran for approximately 9 hours, he states that he was having some mild right-sided chest pain prior to this felt like he was just having muscle strains. This is reproducible on exam here in the emergency department. Patient states that he is feeling back to normal. States that he went to his primary care doctor's office to look at a blister on his foot which he is not concerned about at this time, patient had EKG without any ischemic changes. He also states that he does have a history of vasovagal syncope whenever he gets his blood taken. Patient's lab work unremarkable, troponin negative, chest x-ray without any acute cardiopulmonary abnormality. Patient with heart score 0 , patient with [place] syncope score -3, patient instructed to follow up with the primary care and Cardiology in outpatient setting he verbalized understanding of this and agrees to being discharged home with outpatient follow up Discharge Plan Departure Patient Disposition: Home Clinical Impression: Syncope Instructions: DI for Syncope in Adults (Fainting) Activity Restrictions/Additional Instructions: Please follow up with your primary care doctor and Cardiology in outpatient setting Please read the discharge instructions sheet carefully and bring all papers to all doctor follow-up visits, as it may contain information that your doctor may want to see. Disease processes change and evolve, if your symptoms worsen or if you develop any new symptoms that are concerning to you please return for evaluation. Your evaluation today does not show any evidence of any life-threatening/serious illnesses requiring admission to the hospital or surgery. Please follow-up with your doctor for re-evaluation in approximately 1 day. Seek immediate medical attention for any worrisome symptoms. *If you do not have a primary care provider please contact the [facility] Resource line at [phone]. They will ask some questions about your medical history and help get you set up with a doctor in the community. Prescriptions: No Action azithromycin 500 mg tablet See Rx Instructions .ROUTE .COMPLEX Qty: 3 0RF Rx Instructions: take 500 mg today (day 1), then 250 mg for 4 days (days 2-5) Referrals: Nancy Braun MD [Physician] - Stand Alone Forms: Patient Portal/API/Survey
[2024-09-08 16:03] LABS: Add Manual Diff / Slide Review NO; Basophils Absolute Auto 0 /uL (0-100); Basophils Percent Auto 0.5 % (0-2); Eosinophils Absolute Auto 200 /uL (0-450); Eosinophils Percent Auto 3.6 % (2-4); Hematocrit 40.4 % (41-53); Hemoglobin 13.6 g/dL (13.5-17.5); Lymphocytes Absolute Auto 1600 /uL (1100-4500); Lymphocytes Percent Auto 25.1 % (25-40); Mean Corpuscular HGB Conc 33.6 % (30-36); Mean Corpuscular Hemoglobin 28.5 PG (26-34); Mean Corpuscular Volume 84.9 fL (80-100); Monocytes Absolute Auto 600 /uL (0-900); Monocytes Percent Auto 9.9 % (3-14); Neutrophils Absolute Auto 3800 /uL (1500-7000); Neutrophils Percent Auto 60.9 % (50-75); Platelet Count 158 X10^3/uL (150-400); Red Blood Cell Count 4.76 X10^6/uL (4.5-5.9); Red Cell Distribution Width 13.2 % (11.6-14.8); White Blood Cell Count 6.2 X10^3/uL (4.5-11.0)
[2024-09-08] MEDS: SODIUM CHLORIDE 0.9% 1,000 ML 1000 ML IV (16:03)
[2024-09-08 16:06] LABS: INR 1.1 (0.9-1.3); Prothrombin Time 12.7 SECONDS (9.4-12.5)
[2024-09-08 16:09] LABS: PTT Partial Thromboplastin Tim 34 SECONDS (25.1-36.5)
[2024-09-08 16:10] LABS: Creatine Kinase 268 U/L (55-170)
[2024-09-08 16:11] LABS: Alanine Aminotransferase 46 IU/L (<50); Albumin 4.5 g/dL (3.5-5.0); Albumin Globulin Ratio 1.3 (1.0-2.8); Alkaline Phosphatase 56 U/L (38-126); Aspartate Aminotransferase 62 IU/L (17-59); BUN Creatinine Ratio 13.5 (6-22); Bilirubin Total 1.3 mg/dL (0.2-1.3); Blood Urea Nitrogen 15 mg/dL (9-20); Calcium 8.9 mg/dL (8.4-10.2); Carbon Dioxide 25 mmol/L (22-32); Chloride 106 mmol/L (98-107); Creatine Kinase 267 U/L (55-170); Estimated Glomerular Filt Rate > 60 mL/min (>60); Globulin 3.4 g/dL (1.7-4.1); Glucose 113 mg/dL (70-100); Lipase 92 U/L (23-300); Magnesium 2.2 mg/dL (1.6-2.3); Sodium 139 mmol/L (137-145); Total Protein 7.9 g/dL (6.3-8.2)
[2024-09-08 16:14] LABS: HEMOLYSIS 73 (0-50)
[2024-09-08 16:15] LABS: Potassium 4.1 mmol/L (3.4-5.1)
[2024-09-08 16:23] LABS: NT-proBNP (BNP-Adult 18+) 44 pg/mL (<125); Troponin I < 0.012 ng/mL (0.01-0.034)
== END 2024-09-08 16:48 | disposition home or self-care (01) ==
PROVIDERS: Emergency Provider Student in an Organized Health Care Education/Training Program
DX: R55 Syncope and collapse (principal); R07.9 Chest pain, unspecified
CPT/HCPCS: 36415; 71045; 80053; 82550; 83690; 83735; 83880; 84484; 85025; 85610; 85730; 93005; 93010; 96360; 99284